=== PATIENT | male | born 1960 | race Caucasian/White ===

== ENCOUNTER → 2017-04-26 | Outpatient (CLI) | payer OTHER ==
--- NOTE | 2017-04-26 11:46 | RAD ---
Indication persistent cough. Weakness. PA and lateral views of the chest were obtained. No prior imaging of the chest is available. There are background changes of emphysema and/or fibrosis. In the right upper lobe there is an oval parenchymal opacity measuring approximately 3 cm in greatest dimension. A mass is suspect. In the absence of prior imaging establishing stability CT should be considered. A definite acute finding in either lung is not seen. Significant pleural fluid is not present. There is no pneumothorax. Mild scoliosis is noted IMPRESSION: 3 cm parenchymal opacity in the right lung. See above discussion. Probable background changes of emphysema and/or fibrosis. A preliminary copy of this report was faxed to [facility], Nurse Tanja, on 04-26-17 at 11:06 am by Gabrielle Patterson with a follow up phone confirming they received it.
== END | disposition home or self-care (01) ==
LOC: DXRAD 10:24
PROVIDERS: ATTEND Nurse Practitioner
DX: R05 Cough (principal); R53.1 Weakness; M41.9 Scoliosis, unspecified
CPT/HCPCS: 71020

== ENCOUNTER → 2017-07-06 | Outpatient (CLI) | payer OTHER ==
[2017-07-06 15:46] LABS: BASO % 1 % (0-3); EOS # 0.1 x10^3/uL (0.0-0.7); EOS % 8 % (0-3); HEMATOCRIT 38.5 % (39.0-53.0); HEMOGLOBIN 13.4 g/dL (13.0-17.5); LYMPH # 0.7 x10^3/uL (1.0-4.8); LYMPH % 43 % (24-48); MEAN CORPUSCULAR HEMOGLOBIN 39 pg (25-35); MEAN CORPUSCULAR HGB CONC 35 g/dL (31-37); MEAN CORPUSCULAR VOLUME 110 fL (79-100); MONO # 0.3 x10^3/uL (0.0-1.1); MONO % 21 % (0-9); NEUT # 0.4 x10^3uL (1.8-7.7); NEUT % 27 % (31-73); PLATELET COUNT 100 x10^3/uL (140-400); RED BLOOD COUNT 3.49 x10^6/uL (4.30-5.70); RED CELL DISTRIBUTION WIDTH 15.1 % (11.5-14.5)
[2017-07-06 15:49] LABS: ALBUMIN 2.8 g/dL (3.4-5.0); ALBUMIN/GLOBULIN RATIO 0.7 (1.0-1.7); CALCIUM 8.5 mg/dL (8.5-10.1); CREATININE 1.2 mg/dL (0.7-1.3); GFR 62.6; POTASSIUM 4.5 mmol/L (3.5-5.1); TOTAL BILIRUBIN 0.5 mg/dL (0.2-1.0); TOTAL PROTEIN 6.8 g/dL (6.4-8.2)
[2017-07-06 15:54] LABS: WHITE BLOOD COUNT 1.5 x10^3/uL (4.0-11.0)
[2017-07-06 18:01] LABS: % EOS 4 % (0-5); % LYMPHS 45 % (24-48); % MONOS 20 % (0-10); % SEGS 29 % (35-66)
[2017-07-06 18:06] LABS: PLT ESTIMATE ADEQUATE (ADEQUATE)
[2017-07-06 18:09] LABS: % ATYL 2 % (0-0); ANISOCYTOSIS SLIGHT
== END | disposition home or self-care (01) ==
LOC: LAB 15:01
PROVIDERS: ATTEND Internal Medicine Hematology & Oncology
DX: C34.90 Malignant neoplasm of unspecified part of unspecified bronchus or lung (principal)
CPT/HCPCS: 36415; 80053; 85007; 85027

== ENCOUNTER → 2017-10-17 | Outpatient (CLI) | payer OTHER ==
--- NOTE | 2017-10-17 13:24 | RAD ---
2 views of the Chest 10/17/2017 2:00 AM Indication: SHORT OF BREATH, LUNG CA Comparison: Chest radiograph April 26, 2017 Findings: No pneumothorax or pleural effusion is identified. No new consolidation is seen. Masslike consolidation right midlung has decreased in size and prominence of the interim. Residual linear opacities are seen in this area. Recommended correlation with CT imaging if not recently performed. Heart size is normal. No acute osseous changes are identified. Impression:. 1. No evidence of acute cardiopulmonary process 2. Decreased size of right midlung masslike opacity with residual linear opacity. Given history of lung cancer findings most likely represent post therapeutic change. Recommend correlation with CT imaging as clinically indicated.
== END | disposition home or self-care (01) ==
LOC: DXRAD 12:36
PROVIDERS: ATTEND Nurse Practitioner
DX: C34.90 Malignant neoplasm of unspecified part of unspecified bronchus or lung (principal); R06.02 Shortness of breath
CPT/HCPCS: 71020

== ENCOUNTER 2018-02-28 15:02 | Observation (INO) | payer OTHER ==
[~2018-02-28] VITALS: Ht 185.4 cm; Wt 81.8 kg
[~2018-02-28 15:02] MED LIST: CITA20TA5 PO; CYCL-331 PO; FLUD0.1T PO; FOLI1TAB16 PO; GABA300C8 PO; MORP15TA PO; MORP30TA3 PO; ONDA8TAB14 PO; POTA10TA10 PO; RANI150T2 PO; RIVA20TA2 PO; SUCR1TAB PO; TRAZ50TA15 PO
[2018-02-28 16:03] LABS: BASO % 0 % (0-3); EOS # 0.1 x10^3/uL (0.0-0.7); EOS % 0 % (0-3); HEMATOCRIT 29.2 % (39.0-53.0); HEMOGLOBIN 9.5 g/dL (13.0-17.5); LYMPH # 1.1 x10^3/uL (1.0-4.8); LYMPH % 9 % (24-48); MEAN CORPUSCULAR HEMOGLOBIN 33 pg (25-35); MEAN CORPUSCULAR HGB CONC 33 g/dL (31-37); MEAN CORPUSCULAR VOLUME 103 fL (79-100); MONO % 16 % (0-9); NEUT # 9.1 x10^3uL (1.8-7.7); NEUT % 74 % (31-73); PLATELET COUNT 148 x10^3/uL (140-400); RED BLOOD COUNT 2.85 x10^6/uL (4.30-5.70); RED CELL DISTRIBUTION WIDTH 22.5 % (11.5-14.5); WHITE BLOOD COUNT 12.2 x10^3/uL (4.0-11.0)
[2018-02-28 16:14] LABS: CALCIUM 8.4 mg/dL (8.5-10.1); CREATININE 1.6 mg/dL (0.7-1.3); GFR 44.8; MAGNESIUM 1.7 mg/dL (1.8-2.4); POTASSIUM 4.4 mmol/L (3.5-5.1)
--- NOTE | 2018-02-28 16:44 | PHYS DOC ---
Past History Past Medical History: Asthma, Cancer, COPD, GI Bleed, Other Past Surgical History: Other Alcohol Use: None Drug Use: None Adult General Chief Complaint Chief Complaint: WEAKNESS/GENERALIZED HPI HPI Patient is a 58 year old M who presents with generalized weakness. Sterling has stage IV lung cancer and has progressively worsening weakness over the past 4-6 weeks. He states that he has moderate shortness of breath and generalized weakness in particularly with activity. No other associated symptoms were noted and no exacerbating or alleviating factors were noted Review of Systems Review of Systems Constitutional: Denies fever or chills [] Eyes: Denies change in visual acuity, redness, or eye pain [] HENT: Denies nasal congestion or sore throat [] Respiratory: Denies cough or shortness of breath [] Cardiovascular: No additional information not addressed in HPI [] GI: Denies abdominal pain, nausea, vomiting, bloody stools or diarrhea [] : Denies dysuria or hematuria [] Musculoskeletal: Denies back pain or joint pain [] Integument: Denies rash or skin lesions [] Neurologic: Denies headache, focal weakness or sensory changes [] Endocrine: Denies polyuria or polydipsia [] All other systems were reviewed and found to be within normal limits, except as documented in this note. Family History Family History No pertinent family medical history was reported Current Medications Current Medications Current medications reviewed Allergies Allergies Allergies Coded Allergies Type Severity Reaction Last Updated Verified acetaminophen Allergy Intermediate 02/23/18 Yes aspirin Allergy Intermediate 02/23/18 Yes Physical Exam Physical Exam Constitutional: Well developed, no acute distress, non-toxic appearance. [] Pale HENT: Normocephalic, atraumatic, Eyes: EOMI, conjunctiva normal, no discharge. [] Neck: Normal range of motion, no tenderness, supple, no stridor. [] Cardiovascular:Heart rate regular rhythm, Lungs & Thorax: Bilateral breath sounds clear to auscultation [] diminished breath sounds bilaterally Abdomen: Bowel sounds normal, soft, no tenderness, no masses, no pulsatile masses. [] Skin: Significant venous stasis with chronic discoloration and flaky skin noted in the extremities bilaterally with 2-3+ pitting edema from the feet to the knees bilaterally Back: No tenderness, no CVA tenderness. [] Extremities: Please refer to skin findings Neurologic: Alert and oriented X 3, normal motor function, normal sensory function, no focal deficits noted. [] Psychologic: Affect normal, judgement normal, mood normal. [] Current Patient Data Vital Signs Vital Signs Date Time Temp Pulse Resp B/P (MAP) Pulse Ox O2 Delivery O2 Flow Rate FiO2 02/28/18 15:17 98.1 102 22 98 Room Air Lab Results Laboratory Tests Test 02/28/18 14:49 White Blood Count 12.2 x10^3/uL (4.0-11.0) #H Red Blood Count 2.85 x10^6/uL (4.30-5.70) L Hemoglobin 9.5 g/dL (13.0-17.5) L Hematocrit 29.2 % (39.0-53.0) L Mean Corpuscular Volume 103 fL (79-100) H Mean Corpuscular Hemoglobin 33 pg (25-35) Mean Corpuscular Hemoglobin Concent 33 g/dL (31-37) Red Cell Distribution Width 22.5 % (11.5-14.5) H Platelet Count 148 x10^3/uL (140-400) Neutrophils (%) (Auto) 74 % (31-73) H Lymphocytes (%) (Auto) 9 % (24-48) L Monocytes (%) (Auto) 16 % (0-9) H Eosinophils (%) (Auto) 0 % (0-3) Basophils (%) (Auto) 0 % (0-3) Neutrophils # (Auto) 9.1 x10^3uL (1.8-7.7) H Lymphocytes # (Auto) 1.1 x10^3/uL (1.0-4.8) Monocytes # (Auto) 2.0 x10^3/uL (0.0-1.1) H Eosinophils # (Auto) 0.1 x10^3/uL (0.0-0.7) Basophils # (Auto) 0.0 x10^3/uL (0.0-0.2) Platelet Estimate Pending Sodium Level 133 mmol/L (136-145) L Potassium Level 4.4 mmol/L (3.5-5.1) Chloride Level 98 mmol/L (98-107) Carbon Dioxide Level 25 mmol/L (21-32) Anion Gap 10 (6-14) Blood Urea Nitrogen 6 mg/dL (8-26) L Creatinine 1.6 mg/dL (0.7-1.3) H Estimated GFR (Cockcroft-Gault) 44.8 Glucose Level 104 mg/dL (70-99) H Calcium Level 8.4 mg/dL (8.5-10.1) L Magnesium Level 1.7 mg/dL (1.8-2.4) L EKG EKG [] Radiology/Procedures Radiology/Procedures Chest x-ray Impressions: No acute disease noted Course & Med Decision Making Course & Med Decision Making Pertinent Labs and Imaging studies reviewed. (See chart for details) [] Dragon Disclaimer Dragon Disclaimer This electronic medical record was generated, in whole or in part, using a voice recognition dictation system. Departure Departure: Impression: Primary Impression: Metastatic cancer to lung Additional Impressions: Anemia of chronic disease Generalized weakness Failure to thrive in adult Acute renal injury Hypomagnesemia Disposition: ADMITTED INPATIENT Condition: STABLE Referrals: MARIBEL VÁZQUEZ-Amor (PCP) Problem Qualifiers Primary Impression: Metastatic cancer to lung Laterality: unspecified laterality Qualified Codes: C78.00 - Secondary malignant neoplasm of unspecified lung RICK CHURCH MD Feb 28, 2018 16:44
--- NOTE | 2018-02-28 16:44 | RAD ---
CHEST AP ONLY History: SHORT OF AIR, WEAKNESS. Comparison: February 22, 2018 images but no report Cardiac silhouette is stable. No pneumothorax or pleural effusion. No airspace disease or consolidation. Mild linear markings in both lungs appears similar, may be mild atelectasis or scarring. IMPRESSION: Stable exam. No acute infiltrate identified. Electronically signed by: Darrell Torres MD (02/28/2018 4:41 PM) [facility]
[2018-02-28] MEDS ORDERED: MAGNESIUM OXIDE 400 MG TABLET PO ONE (17:00)
[2018-02-28] MEDS ORDERED: MAGNESIUM SULFATE 1GM 100 ML IV ONE (17:00)
[2018-02-28 17:29] VITALS: BP 123/81
[2018-02-28 18:08] LABS: % LYMPHS 11 % (24-48); % MONOS 16 % (0-10); % SEGS 73 % (35-66)
[2018-02-28] MEDS ORDERED: ONDANSETRON ODT 4 MG TAB.RAPDIS PO PRN (18:30)
[2018-02-28 19:38] VITALS: BP 85/55
[2018-02-28] MEDS: MORPHINE IR 15 MG TABLET PO SCH (20:38)
[2018-02-28] MEDS: POTASSIUM CHLORIDE 10 MEQ TABLET.ER. PO SCH (20:38)
[2018-02-28] MEDS: CITALOPRAM 20 MG TABLET. PO SCH (20:38)
[2018-02-28] MEDS: GABAPENTIN 300 MG CAPSULE. PO SCH (20:38)
[2018-02-28] MEDS: CYCLOBENZAPRINE 10 MG TABLET. PO SCH (20:39)
[2018-02-28 20:50] LABS: ANISOCYTOSIS MOD; PLT ESTIMATE ADEQUATE (ADEQUATE); POLYCHROMASIA PRESENT
[2018-02-28] MEDS ORDERED: traZODone 50 MG TABLET. PO SCH (21:00)
[2018-02-28] MEDS ORDERED: MORPHINE ER 30 MG TABLET.ER PO SCH (21:00)
[2018-02-28 22:53] VITALS: BP 98/60
[2018-03-01 08:06] VITALS: BP 119/68
[2018-03-01 08:59] LABS: CALCIUM 8.1 mg/dL (8.5-10.1); CREATININE 1.3 mg/dL (0.7-1.3); GFR 56.9; POTASSIUM 4.4 mmol/L (3.5-5.1)
[2018-03-01] MEDS ORDERED: FOLIC ACID 1 MG TABLET PO SCH (09:00)
[2018-03-01] MEDS ORDERED: FLUDROCORTISONE 0.1 MG TABLET PO SCH (09:00)
[2018-03-01] MEDS ORDERED: FAMOTIDINE 20 MG TABLET PO SCH (09:00)
[2018-03-01] MEDS ORDERED: SUCRALFATE 1 GM TABLET. PO SCH (09:00)
[2018-03-01] MEDS: GABAPENTIN 300 MG CAPSULE. PO SCH ×2 (09:19→16:16)
[2018-03-01] MEDS: POTASSIUM CHLORIDE 10 MEQ TABLET.ER. PO SCH (09:20)
[2018-03-01] MEDS: CITALOPRAM 20 MG TABLET. PO SCH (09:20)
[2018-03-01] MEDS: CYCLOBENZAPRINE 10 MG TABLET. PO SCH (09:21)
[2018-03-01 10:22] LABS: BASO # 0.1 x10^3/uL (0.0-0.2); BASO % 1 % (0-3); EOS # 0.1 x10^3/uL (0.0-0.7); EOS % 1 % (0-3); HEMATOCRIT 26.2 % (39.0-53.0); HEMOGLOBIN 8.7 g/dL (13.0-17.5); LYMPH # 0.7 x10^3/uL (1.0-4.8); LYMPH % 9 % (24-48); MEAN CORPUSCULAR HEMOGLOBIN 34 pg (25-35); MEAN CORPUSCULAR HGB CONC 33 g/dL (31-37); MEAN CORPUSCULAR VOLUME 101 fL (79-100); MONO # 1.1 x10^3/uL (0.0-1.1); MONO % 12 % (0-9); NEUT # 6.8 x10^3uL (1.8-7.7); NEUT % 78 % (31-73); PLATELET COUNT 136 x10^3/uL (140-400); RED BLOOD COUNT 2.58 x10^6/uL (4.30-5.70); RED CELL DISTRIBUTION WIDTH 22.6 % (11.5-14.5); WHITE BLOOD COUNT 8.8 x10^3/uL (4.0-11.0)
[2018-03-01 11:00] VITALS: BP 107/49
--- NOTE | 2018-03-01 14:01 | SSS ---
ADMIT DATE: 03/01/2018 HISTORY OF PRESENT ILLNESS: The patient is a 58-year-old male patient who was discharged only recently from [facility] with a home health. Apparently, the home health found him still wearing the same clothes that we sent him home with, very weak and unable to take care of himself and therefore, the patient was admitted for observation to arrange for him to be placed and in fact, he was accepted at [facility] and will be discharged there. On questioning him, he continued to complain of marked weakness and moderate shortness of breath. PAST MEDICAL HISTORY: Significant for COPD, metastatic lung cancer and osteoarthritis. He has also severe anemia due to upper gastrointestinal bleeding because of most likely nonsteroidal anti-inflammatory medication induced and he was already on Xarelto. He required 2 units of packed RBCs. On his last admission, also he had severe hypokalemia and severe hypomagnesemia and marked debility and deconditioning and muscle wasting. PAST SURGICAL HISTORY: Significant for lung biopsy and adrenal gland biopsy. ALLERGIES: HE IS ALLERGIC TO ACETAMINOPHEN AND ASPIRIN. MEDICATIONS: He is currently on following medications: He is on cyclobenzaprine 10 mg twice a day, morphine sulfate immediate release 15 mg twice a day, morphine sulfate extended release 30 mg twice a day, gabapentin 300 mg 3 times a day, citalopram hydrobromide 20 mg twice a day, trazodone 50 mg at bedtime, potassium chloride 10 mEq twice a day, ondansetron 8 mg 3 times a day, ranitidine 150 mg once a day, sucralfate 1 gram daily, fludrocortisone acetate 100 mcg daily, folic acid 1 mg once a day. We did discontinue his ibuprofen and Xarelto on his last admission. REVIEW OF SYSTEMS: As per history of present illness. FAMILY HISTORY: He has one brother who at age of 67 because of myocardial infarction. His father of cerebral hemorrhage in his 80s and mother of Alzheimer disease in her 90s. SOCIAL HISTORY: He is single, never , has no children. He lives with 2 cats. He smokes half a pack a day for the last 20 years. He used to be a heavy drinker. He quit about 6 months ago. He does not drink. He is currently unemployed. PHYSICAL EXAMINATION: GENERAL: On arrival to the Emergency Room, he looked well and was clearly in no apparent distress, was pale, no jaundice, cyanosis, lymphadenopathy or thyromegaly. No jugular venous distention. No lower limb edema. VITAL SIGNS: His heart rate was 87, blood pressure was 119/68, temperature was 98, respiratory rate was 18 and oxygen saturation was 98% on 2 liters of oxygen. HEENT: Showed normocephalic, atraumatic. NECK: Supple. HEART: Showed normal first and second heart sounds. No gallop, rub or murmur. CHEST: Clear to auscultation. No crepitation or rhonchi. ABDOMEN: Distended, soft, nontender. No guarding or rigidity. No organomegaly. Hernial orifice intact. Bowel sounds normal. NEUROLOGIC: He was awake, alert, responding appropriately. Cranial nerves intact. He moves his extremities without difficulty; however, he is very weak and nonambulatory and requires assistance. His intake over the last 24 hours was 540, output 250. LABORATORY DATA: As of this morning showed a white cell count of 8800, hemoglobin 8.7, hematocrit 26, MCV 101 and platelet count of 136,000. His serum sodium was 138, potassium 4.4, chloride 103, bicarbonate was 28, anion gap of 7, BUN 6, creatinine 1.3, estimated GFR was 57 mL per minute. His glucose was 91, calcium was 8.1, magnesium was 1.7. DISCHARGE MEDICATIONS: He will be discharged on following medications: Famotidine 20 mg once a day, sucralfate 1 gram daily, folic acid 1 mg once a day, fludrocortisone 0.1 mg daily, potassium chloride 10 mEq twice a day, trazodone 50 mg daily, morphine sulfate extended release 30 mg twice a day, morphine sulfate immediate release 15 mg twice a day, gabapentin 300 mg 3 times a day, Flexeril 10 mg twice a day, citalopram hydrobromide 20 mg twice a day, ondansetron 8 mg 3 times a day. FINAL DISCHARGE DIAGNOSES: 1. Metastatic lung cancer, on chemotherapy. 2. Recent acute blood loss anemia, likely due to nonsteroidal anti-inflammatory medication. The patient was already on Xarelto. He did receive 2 units of packed RBCs. His most recent hemoglobin was 8.9, hematocrit was 26.5. 3. Severe hypokalemia, resolved. Hypomagnesemia, resolved, chronic obstructive pulmonary disease, generalized osteoarthritis, debility and deconditioning with marked muscle wasting. UZAIR DE LEON MD DR: MECCA/vineet JOB#: [id number] / [id number]
[2018-03-01 16:16] VITALS: BP 112/62
[2018-03-01] MEDS: MORPHINE IR 15 MG TABLET PO SCH (16:16)
== END 2018-03-01 18:00 | disposition short-term general hospital (02) ==
LOC: ER 15:02 → 1 SOUTH 16:45
PROVIDERS: ADMIT Internal Medicine; ATTEND Internal Medicine
DX: C34.90 Malignant neoplasm of unspecified part of unspecified bronchus or lung (principal); D62 Acute posthemorrhagic anemia; E87.6 Hypokalemia; J44.9 Chronic obstructive pulmonary disease, unspecified; F17.210 Nicotine dependence, cigarettes, uncomplicated; M15.9 Polyosteoarthritis, unspecified; Z82.0 Family history of epilepsy and other diseases of the nervous system; Z82.49 Family history of ischemic heart disease and other diseases of the circulatory system; Z85.118 Personal history of other malignant neoplasm of bronchus and lung
CPT/HCPCS: 36415; 71045; 80048; 83735; 85007; 85025; 97110; 97162; 97166; 99285; G0378; G0379

== ENCOUNTER 2018-12-04 09:40 | Emergency (ER) | payer OTHER ==
[~2018-12-04 09:40] MED LIST changes: -CITA20TA5 PO; +CITA20TA6 PO; +TRAZ-85 PO; -TRAZ50TA15 PO
[2018-12-04] MEDS ORDERED: IPRATRPIUM/ALBUTEROL 0.5/2.5MG 3 ML NEBU. NEB ONE (10:00)
[2018-12-04] MEDS ORDERED: methylPREDNISolone SOD SUCC PF 125 MG/2 ML VIAL. IV ONE (10:15)
[2018-12-04 10:34] LABS: BASO % 1 % (0-3); EOS # 0.3 x10^3/uL (0.0-0.7); EOS % 7 % (0-3); HEMATOCRIT 28.8 % (39.0-53.0); HEMOGLOBIN 9.6 g/dL (13.0-17.5); LYMPH # 0.7 x10^3/uL (1.0-4.8); LYMPH % 18 % (24-48); MEAN CORPUSCULAR HEMOGLOBIN 37 pg (25-35); MEAN CORPUSCULAR HGB CONC 34 g/dL (31-37); MEAN CORPUSCULAR VOLUME 109 fL (79-100); MONO # 0.8 x10^3/uL (0.0-1.1); MONO % 20 % (0-9); NEUT # 2.2 x10^3uL (1.8-7.7); NEUT % 54 % (31-73); PLATELET COUNT 250 x10^3/uL (140-400); RED BLOOD COUNT 2.64 x10^6/uL (4.30-5.70); RED CELL DISTRIBUTION WIDTH 21.7 % (11.5-14.5)
[2018-12-04 10:56] LABS: ALBUMIN 2.4 g/dL (3.4-5.0); ALBUMIN/GLOBULIN RATIO 0.7 (1.0-1.7); CALCIUM 8.5 mg/dL (8.5-10.1); CREATININE 1.4 mg/dL (0.7-1.3); GFR 52.2; POTASSIUM 4.6 mmol/L (3.5-5.1); TOTAL BILIRUBIN 0.2 mg/dL (0.2-1.0); TOTAL PROTEIN 5.9 g/dL (6.4-8.2)
--- NOTE | 2018-12-04 11:11 | PHYS DOC ---
Past History Past Medical History: Anemia, Arthritis, Cancer, Depression, Hypertension Past Surgical History: Other Alcohol Use: None Drug Use: None Adult General Chief Complaint Chief Complaint: DYSPNEA/RESPIRATOY DISTRESS HPI HPI Patient is a 58 year old male patient with history of stage IV lung cancer on PRN concentrated oxygen brought in by EMS from half-way because of low oxygen level. prison reported that patient had O2 sat of 85% at room air. EMS reported that patient had a O2 sat of 80s at room air that improved to 90+ with 2 L of oxygen.Patient takes extensive pain medication and EMS reported that he was somnolent with decrease of O2 sat during episodes of falling asleep. Patient complaining of lower extremity edema for 2 weeks and denies shortness of breath, chest pain, palpitation, nausea and vomiting. Review of Systems Review of Systems Constitutional: Denies fever or chills [] Eyes: Denies change in visual acuity, redness, or eye pain [] HENT: Denies nasal congestion or sore throat [] Respiratory: Denies cough or shortness of breath [] Cardiovascular: No additional information not addressed in HPI [] GI: Denies abdominal pain, nausea, vomiting, bloody stools or diarrhea [] : Denies dysuria or hematuria [] Musculoskeletal: Denies back pain or joint pain [] Integument: Denies rash or skin lesions [] Neurologic: Denies headache, focal weakness or sensory changes [] Endocrine: Denies polyuria or polydipsia [] All other systems were reviewed and found to be within normal limits, except as documented in this note. Current Medications Current Medications Current Medications Medications (Trade) Dose Ordered Sig/[facility] Start Time Stop Time Status Last Admin Dose Admin Albuterol/ Ipratropium (Duoneb) 3 ml 1X ONCE 12/04/18 10:00 12/04/18 10:02 DC 12/04/18 10:39 3 ML Methylprednisolone Sodium Succinate (SOLU-Medrol 125MG VIAL) 125 mg 1X ONCE 12/04/18 10:15 12/04/18 10:16 DC Allergies Allergies Allergies Coded Allergies Type Severity Reaction Last Updated Verified acetaminophen Allergy Intermediate 02/23/18 Yes aspirin Allergy Intermediate 02/23/18 Yes Physical Exam Physical Exam Constitutional: No acute distress, non-toxic appearance. [] HENT: Normocephalic, atraumatic, oropharynx moist, no oral exudates, nose normal. [] Eyes: PERRLA, EOMI, conjunctiva normal, no discharge. [] Neck: Normal range of motion, no tenderness, supple, no stridor. [] Cardiovascular:Heart rate regular rhythm, no murmur [] Lungs & Thorax: Bilateral breath sounds clear to auscultation [] Abdomen: Bowel sounds normal, soft, no tenderness, no masses, no pulsatile masses. [] Skin: Warm, dry, no erythema, no rash. [] Back: No tenderness, no CVA tenderness. [] Extremities: No tenderness, no cyanosis, no clubbing, ROM intact, no edema. [] Neurologic: Alert and oriented X 3, normal motor function, normal sensory function, no focal deficits noted. [] Psychologic: Affect normal, judgement normal, mood normal. [] Current Patient Data Vital Signs Vital Signs Date Time Temp Pulse Resp B/P (MAP) Pulse Ox O2 Delivery O2 Flow Rate FiO2 12/04/18 10:39 92 Room Air 12/04/18 09:45 98.0 82 24 Lab Results Laboratory Tests Test 12/04/18 10:20 White Blood Count 4.0 x10^3/uL (4.0-11.0) Red Blood Count 2.64 x10^6/uL (4.30-5.70) L Hemoglobin 9.6 g/dL (13.0-17.5) L Hematocrit 28.8 % (39.0-53.0) L Mean Corpuscular Volume 109 fL (79-100) H Mean Corpuscular Hemoglobin 37 pg (25-35) H Mean Corpuscular Hemoglobin Concent 34 g/dL (31-37) Red Cell Distribution Width 21.7 % (11.5-14.5) H Platelet Count 250 x10^3/uL (140-400) Neutrophils (%) (Auto) 54 % (31-73) Lymphocytes (%) (Auto) 18 % (24-48) L Monocytes (%) (Auto) 20 % (0-9) H Eosinophils (%) (Auto) 7 % (0-3) H Basophils (%) (Auto) 1 % (0-3) Neutrophils # (Auto) 2.2 x10^3uL (1.8-7.7) Lymphocytes # (Auto) 0.7 x10^3/uL (1.0-4.8) L Monocytes # (Auto) 0.8 x10^3/uL (0.0-1.1) Eosinophils # (Auto) 0.3 x10^3/uL (0.0-0.7) Basophils # (Auto) 0.0 x10^3/uL (0.0-0.2) Platelet Estimate Pending D-Dimer (Valarie) 1.78 mg/L (0.00-0.50) H Sodium Level 142 mmol/L (136-145) Potassium Level 4.6 mmol/L (3.5-5.1) Chloride Level 107 mmol/L (98-107) Carbon Dioxide Level 28 mmol/L (21-32) Anion Gap 7 (6-14) Blood Urea Nitrogen 10 mg/dL (8-26) Creatinine 1.4 mg/dL (0.7-1.3) H Estimated GFR (Cockcroft-Gault) 52.2 BUN/Creatinine Ratio 7 (6-20) Glucose Level 83 mg/dL (70-99) Lactic Acid Level 1.8 mmol/L (0.4-2.0) Calcium Level 8.5 mg/dL (8.5-10.1) Total Bilirubin 0.2 mg/dL (0.2-1.0) Aspartate Amino Transferase (AST) 29 U/L (15-37) Alanine Aminotransferase (ALT) 24 U/L (16-63) Alkaline Phosphatase 77 U/L (46-116) Troponin I Quantitative < 0.017 ng/mL (0-0.055) HD-Fgz-I-Type Natriuretic Peptide 165 pg/mL (0-124) H Total Protein 5.9 g/dL (6.4-8.2) L Albumin 2.4 g/dL (3.4-5.0) L Albumin/Globulin Ratio 0.7 (1.0-1.7) L EKG EKG EKG interpreted by me. EKG at 1025 showed normal sinus rhythm at rate of 79, prolonged QT at 442, intraventricular unresponsive speech block, poor R-wave progress in anteroseptal leads, inverted T in anteroseptal dates, no acute ST-T wave abnormalities. Radiology/Procedures Radiology/Procedures [address] [address] IMAGING REPORT Signed PATIENT: BONNY NERI ACCOUNT: [id number] : 1960 LOCATION: ER AGE: 58 SEX: M EXAM STATUS: REG ER ORD. PHYSICIAN: BRYCE CORDON MD REASON: hypoxia PROCEDURE: PORTABLE CHEST 1V Portable chest, 12/04/2017: HISTORY: Hypoxia, lung cancer Comparison is made to a study from 02/28/2018. The heart size is normal. A mild right basilar opacity has developed compatible with a small amount pleural fluid and underlying atelectasis/infiltrate. There are scattered parenchymal scars. There appears to be minimal retrocardiac atelectasis in the left base. There is no evidence of pneumothorax. IMPRESSION: New small right pleural effusion with mild underlying right basilar atelectasis/infiltrate. Electronically signed by: Viet Barron MD (12/04/2018 11:21 AM) [facility] DICTATED AND SIGNED BY: VIET BARRON MD DATE: 12/04/18 [id number] CC: BRYCE CORDON MD; MARIBEL VÁZQUEZ STRAP SEWER-C ~ Course & Med Decision Making Course & Med Decision Making Pertinent Labs and Imaging studies reviewed. (See chart for details) Evaluation of patient in ER showed 58-year-old male patient with history of lung cancer on multiple. Pain medication brought in because of hypoxia. Patient had O2 sat of 95% on 2 L of oxygen in ER. Patient was a hard stick and did not want to have multifocal IV line access or G. Labs and chest x-ray did not show acute problem except for elevation of d-dimer. Patient already taking 20 mg of Xarelto daily. Patient wants to return to half-way and not have any more tests. Dr. Verma informed at 1255 about patient care and plan of care and agreed with discharging patient to the half-way. Dragon Disclaimer Dragon Disclaimer This electronic medical record was generated, in whole or in part, using a voice recognition dictation system. Departure Departure: Impression: Primary Impression: Hypoxia Additional Impressions: Sedated due to medication Lung cancer Chronic anemia Elevated d-dimer Pleural effusion Disposition: HOME, SELF-CARE ( To half-way at 1300) Condition: IMPROVED Referrals: MARIBEL VÁZQUEZ (PCP) Patient Instructions: Shortness of Breath Additional Instructions: Continue current medication Follow-up with your primary care physician in 3-5 days Return to ER if not getting better Take oxygen as needed Problem Qualifiers BRYCE CORDON MD Dec 04, 2018 11:11
--- NOTE | 2018-12-04 11:25 | RAD ---
Portable chest, 12/04/2017: HISTORY: Hypoxia, lung cancer Comparison is made to a study from 02/28/2018. The heart size is normal. A mild right basilar opacity has developed compatible with a small amount pleural fluid and underlying atelectasis/infiltrate. There are scattered parenchymal scars. There appears to be minimal retrocardiac atelectasis in the left base. There is no evidence of pneumothorax. IMPRESSION: New small right pleural effusion with mild underlying right basilar atelectasis/infiltrate. Electronically signed by: Viet Barron MD (12/04/2018 11:21 AM) [facility]
[2018-12-04 11:30] LABS: ANISOCYTOSIS SLIGHT; PLT ESTIMATE ADEQUATE (ADEQUATE); POLYCHROMASIA SLIGHT
[2018-12-04 11:31] LABS: SCHISTOCYTES OCC; STOMATOCYTES OCC
[2018-12-04] MEDS ORDERED: IOHEXOL 300 MG/ML 75 ML VIAL. IV ONE (12:00)
[2018-12-04 14:50] VITALS: BP 98/58
--- NOTE | 2018-12-05 05:51 | EKG ---
[address] [address] Test Date: 2018-12-04 Test Time: 10:25:17 Pat Name: BONNY NERI Department: Room: Gender: M Management Aide: : 1960 Requested By: BRYCE CORDON Order Number: [id number] Reading MD: Measurements Intervals [place] Rate: 79 P: 90 VA: 168 QRS: 61 QRSD: 96 T: 41 QT: 442 QTc: 508 Interpretive Statements SINUS RHYTHM QRS(T) CONTOUR ABNORMALITY CONSIDER ANTEROSEPTAL MYOCARDIAL DAMAGE PROLONGED QT POSSIBLY ABNORMAL ECG RI6.01 Unconfirmed report No previous ECG available for comparison
== END 2018-12-04 14:50 | disposition home or self-care (01) ==
LOC: ER 09:40
DX: R09.02 Hypoxemia (principal); D64.89 Other specified anemias; J90 Pleural effusion, not elsewhere classified; R79.1 Abnormal coagulation profile; R60.0 Localized edema; M19.90 Unspecified osteoarthritis, unspecified site; I10 Essential (primary) hypertension; F32.9 Major depressive disorder, single episode, unspecified; Z85.118 Personal history of other malignant neoplasm of bronchus and lung; Z86.2 Personal history of diseases of the blood and blood-forming organs and certain disorders involving the immune mechanism; Z88.6 Allergy status to analgesic agent
CPT/HCPCS: 36415; 71045; 80053; 83605; 83880; 84484; 85025; 85379; 93005; 94640; 99284; J7620